=== PATIENT | male | born 1975 | race Caucasian/White ===

== ENCOUNTER 2021-11-28 01:57 | Emergency (ER) | payer SELFPAY ==
[~2021-11-28] VITALS: Ht 188 cm; Wt 95.5 kg
[2021-11-28 03:45] VITALS: BP 130/87; PULSE 94; TEMP 98.4
== END 2021-11-28 03:45 | disposition home or self-care (01) ==
LOC: COL.ER 01:57
DX: S01.511A Laceration without foreign body of lip, initial encounter (principal); Z23 Encounter for immunization; W22.8XXA Striking against or struck by other objects, initial encounter; Y92.59 Other trade areas as the place of occurrence of the external cause